=== PATIENT | female | born 1980 | race American Indian/Alaskan Native ===

== ENCOUNTER 2018-12-14 14:47 | Outpatient (CLI) | payer OTHER ==
[2018-12-14] MEDS ORDERED: NORMODYNE PO SCH (16:00)
[2018-12-14 16:02] LABS: Hematocrit 32.2 % (30.3-42.9); Hemoglobin 10.5 gm/dl (10.1-14.3); Mean Corpuscular HGB Conc 33 % (30-34); Mean Corpuscular Volume 81 fl (79-97); Platelet Count 215 K/mm3 (140-440); Red Cell Distribution Width 18.6 % (13.2-15.2)
[2018-12-14 16:17] LABS: Bilirubin,Urine NEG (Negative); Blood,Urine NEG (Negative); Color,Urine Yellow (Yellow); Protein,Urine <15 mg/dL mg/dL (Negative); Uric Acid 2.9 mg/dL (3.5-7.6)
[2018-12-14 16:18] LABS: Alanine Aminotransferase < 5 units/L (7-56)
[2018-12-14] MEDS ORDERED: APRESOLINE IV PRN (16:54)
--- NOTE | 2018-12-14 19:09 | Ultrasound Report ---
FINAL REPORT PROCEDURE: US OB BPP WO NON-STRESS TECHNIQUE: Sonographic evaluation for breathing, movement, tone, and amniotic flui d volume was performed. CPT 96410 HISTORY: -induced hypertension COMPARISON: No prior studies are available for comparison. FINDINGS: Amniotic fluid volume: Normal-score 2. At least one vertical pocket > 2 cm or more in vertical axi s. breathing: Normal-score 2. movement: Normal-score 2. tone: Normal. Score: 8 of 8. Single living intrauterine gestation visualized currently vertex presentation with a heart rate of 17 0 beats per minute. IMPRESSION: Normal biophysical profile. 05/31.
[2018-12-14 19:10] VITALS: BP 143/94
--- NOTE | 2018-12-14 19:12 | Ultrasound Report ---
FINAL REPORT PROCEDURE: US OB VELOCIMETRY UMBILCAL ART TECHNIQUE: Doppler imaging of the umbilical artery was obtained and recorded. HISTORY: -induced hypertension COMPARISON: No prior studies are available for comparison. FINDINGS: Systolic to diastolic ratio of the umbilical arteries shows 1.39 which is within normal limits. Good diastolic flow is seen. The resistive index appears normal measuring 0.52. Good diastolic flow is vis ualized. heart rate of 170 beats per minute is detected. Amount of amniotic fluid subjectively appears normal. Amniotic fluid index appears normal measuring 15.2 centimeters. IMPRESSION: Doppler evaluation of the umbilical arteries shows normal-appearing resistive index and systolic to d iastolic ratio. Good diastolic flow seen. Amount of amniotic fluid appears normal.
--- NOTE | 2018-12-14 19:14 | Ultrasound Report ---
FINAL REPORT PROCEDURE: US OB LIMITED TECHNIQUE: Real-time limited sonographic examination was performed for evaluation of well-bein g for each fetus with image documentation (1 or more fetuses). CPT 83573 HISTORY: pih COMPARISON: No prior studies are available for comparison. FINDINGS: There is a single living intrauterine gestation currently visualized in the vertex presentation with a heart rate of 170 beats per minute. Both subjectively and by amniotic fluid index the amount of amn iotic fluid appears normal. The amniotic fluid index is 15.2 centimeters. The placenta is located pos terior and fundal and is grade 3. No abruption is seen. Detailed exam of the anatomy was not pe rformed as this was not requested. IMPRESSION: Both subjectively and by amniotic fluid index the amount of amniotic fluid appears normal. Single living intrauterine gestation currently visualized vertex presentation. Grade 3 placenta present as described. No abruption visualized.
== END 2018-12-14 19:30 | disposition home or self-care (01) ==
LOC: TRG 14:47
PROVIDERS: ATTEND Obstetrics & Gynecology
DX: O47.1 False labor at or after 37 completed weeks of gestation (principal); O13.3 Gestational [pregnancy-induced] hypertension without significant proteinuria, third trimester; Z3A.39 39 weeks gestation of pregnancy
CPT/HCPCS: 36415; 59025; 76815; 76819; 76820; 81001; 82565; 83615; 84450; 84460; 84550; 85027

== ENCOUNTER 2018-12-17 02:22 | Inpatient (IN) | payer SELFPAY ==
[2018-12-17] MEDS ORDERED: APRESOLINE IV ONE (02:35)
[2018-12-17] MEDS ORDERED: MAGNESIUM SULFATE 4GM/100ML 4 GM/100 ML BAG IV ONE (02:40)
[2018-12-17] MEDS ORDERED: NORMODYNE IV ONE ×2 (02:40→06:50)
[2018-12-17] MEDS ORDERED: SUBLIMAZE IV PRN (03:20)
[2018-12-17] MEDS ORDERED: BRETHINE SUB-Q PRN (03:20)
[2018-12-17] MEDS: LACTATED RINGERS 1,000 ML IV SCH ×2 (03:20→14:54)
[2018-12-17] MEDS ORDERED: XYLOCAINE 2% INFILTRATI ONE (03:20)
[2018-12-17] MEDS ORDERED: AMPICILLIN/NS 2 GM/100 ML 2 GM/100 ML BAG IV ONE (03:20)
[2018-12-17] MEDS: MAGNESIUM SULFATE 40GM/1000ML 40 GM/1,000 ML BAG IV SCH (03:40)
--- NOTE | 2018-12-17 03:44 | History and Physical Report ---
History of Present Illness Date of examination: 12/17/18 Date of admission: 12/17/18 03:18 Chief complaint: Labor History of present illness: 38 year old presents to L&D in active labor at 39 weeks gestation. No records are available but patient states she has been receiving care at [facility]. Patient speaks Italian. Patient reports a history of severe preeclampsia with a previous ; she states she has been receiving LDA during this . She states she has not been taking any other medications during this . Patient reports a latex allergy. No other allergies reported. Patient denies leaking of fluid or vaginal bleeding. Patient reports active movement. Patient denies headache, visual disturbance, nausea or vomiting, abdominal or epigastric pain or edema. labs have been drawn and US has been ordered. Past History Past Medical History: other (history of severe preeclampsia with a previous ; overweight) Past Surgical History: no surgical history [facility] History: denies: abnormal PAP smear, chlamydia, gonorrhea, hepatitis B, hepatitis C, herpes, HIV, syphilis, trichomonas Family/Genetic History: none Social history: single, lives with family, full code. denies: smoking, alcohol abuse, prescription drug abuse, IV drug use - Obstetrical History Expected Date of Delivery: 12/24/18 Actual Gestation: 39 Week(s) 0 Day(s) : 3 Para: 1 Hx # Term Pregnancies: 2 Number of Pregnancies: 0 Spontaneous Abortions: 1 (12 weeks gestation) Induced : 0 Number of Living Children: 1 Medications and Allergies Allergies Allergy/AdvReac Type Severity Reaction Status Date / Time latex Allergy Rash Verified 12/17/18 04:12 Home Medications Medication Instructions Recorded Confirmed Last Taken Type Aspirin BABY CHEW TAB 10/18/18 Unknown History 21/Iron Fu/Folic Acid 10/18/18 Unknown History Active Meds: Active Medications Fentanyl (Sublimaze) 100 mcg IV Q2H PRN PRN Reason: Labor Pain Hydralazine HCl (Apresoline) 10 mg IV ONCE ONE Stop: 12/17/18 02:36 Ampicillin Sodium (Polycillin/Ns 2 Gm/100 Ml) 2 gm in 100 mls @ 100 mls/hr IV ONCE ONE; Protocol Stop: 12/17/18 04:19 Lactated Ringer's (Lactated Ringers) 1,000 mls @ 125 mls/hr IV DIRECT DAVID Oxytocin/Sodium Chloride (Pitocin/Ns 20 Unit/1000ml Drip) 20 units in 1,000 mls @ 125 mls/hr IV DIRECT DAVID Oxytocin/Sodium Chloride (Pitocin/Ns 30 Unit/500ml) 30 units in 500 mls @ 0 mls/hr IV TITR DAVID; Protocol Ampicillin Sodium (Ampicillin/Ns 1 Gm/50 Ml) 1 gm in 50 mls @ 100 mls/hr IV Q4HR DAVID; Protocol Magnesium Sulfate (Magnesium Sulfate 40gm/1000ml) 40 gm in 1,000 mls @ 50 mls/hr IV DIRECT DAVID Magnesium Sulfate (Magnesium Sulfate 4gm/100ml) 4 gm in 100 mls @ 300 mls/hr IV ONCE ONE Stop: 12/17/18 02:59 Labetalol HCl (Normodyne) 10 mg IV ONCE ONE Stop: 12/17/18 02:41 Lidocaine (Xylocaine 2%) 20 ml INFILTRATI ONCE ONE Stop: 12/17/18 03:21 Terbutaline Sulfate (Brethine) 0.25 mg SUB-Q ONCE PRN PRN Reason: Hyperstimulation/Hypertonicity Review of Systems All systems: negative (contractions and elevated blood pressure) - Vital Signs Vital signs: Vital Signs Pulse BP 91 H 158/85 12/17/18 03:25 12/17/18 03:25 Temp Pulse Resp BP Pulse Ox 91 H 158/85 12/17/18 03:25 12/17/18 03:25 - Physical Exam Cardiovascular: Regular rate Lungs: Positive: Clear to auscultation Abdomen: Positive: normal appearance, soft. Negative: distention, tenderness, guarding, rigidity Genitourinary (Female): Positive: normal external genitalia, normal perenium. Negative: perineal/vulvar lesions Vagina: Positive: normal moisture Uterus: Positive: enlarged. Negative: tender Anus/Rectum: Positive: normal perianal skin Extremities: Positive: normal. Negative: tenderness, edema - Obstetrical FHR: category 2 Uterine Contraction Monitor Mode: External Cervical Dilatation: 6 Cervical Effacement Percentage: 90 station: -2 Uterine Contraction Pattern: Regular Uterine Contraction Intensity: Moderate Results All other labs normal. Assessment and Plan A: at 39 weeks gestation. No records available; will request records. Active labor. GBS unknown. Preeclampsia with severe features. P: Admit. IV Labetalol (IV Hydralazine not available at this time per pharmacy). Magnesium Sulfate. GBS prophylaxis. Preeclamptic labs. Strict I&O, Caceres catheter. Continuous EFM. Expedite delivery. Consulted with Dr. Benitez re: this patient; states he agrees with above POC.
[2018-12-17] MEDS ORDERED: PITOCin/NS 20 UNIT/1000ML DRIP 20 UNITS/1,000 ML BAG IV SCH ×2 (04:00→06:00)
[2018-12-17] MEDS ORDERED: PITOCin/NS 30 UNIT/500ML 30 UNITS/500 ML BAG IV SCH (04:00)
[2018-12-17 04:11] LABS: Hemoglobin 10.2 gm/dl (10.1-14.3); Mean Corpuscular HGB Conc 32 % (30-34); Mean Corpuscular Volume 81 fl (79-97); Platelet Count 199 K/mm3 (140-440); Red Blood Count 3.93 M/mm3 (3.65-5.03); Red Cell Distribution Width 19.1 % (13.2-15.2)
[2018-12-17] MEDS ORDERED: STADOL IV PRN (04:16)
[2018-12-17 04:20] LABS: INR 0.95 (0.87-1.13)
[2018-12-17 04:21] LABS: Partial Thromboplastin Time 25.6 Sec. (24.2-36.6)
[2018-12-17 05:00] LABS: Alanine Aminotransferase 7 units/L (7-56); Albumin 3.6 g/dL (3.9-5); BUN/Creatinine Ratio 5; Blood Urea Nitrogen 2 mg/dL (7-17); Calcium 9.5 mg/dL (8.4-10.2); Hemolysis Index 8; Uric Acid 3.3 mg/dL (3.5-7.6)
[2018-12-17 05:08] LABS: Hepatitis C Virus Antibody Non-Reactive (NonReactive)
[2018-12-17] MEDS ORDERED: HEMABATE IM ONE ×2 (05:08→05:26)
[2018-12-17] MEDS ORDERED: CYTOTEC ONE ×3 (05:15→07:42)
--- NOTE | 2018-12-17 05:25 | Procedure Note ---
OB Delivery Note - Delivery Date of Delivery: 12/17/18 Surgeon: JANE BRO Estimated blood loss: other (600ml) - Vaginal Delivery presentation: vertex Delivery position: OA Intrapartum events: preeclampsia, precipitous labor- <3hr Delivery induction: none Delivery monitor: external FHT, external uterine Route of delivery: Delivery placenta: spontaneous Delivery cord: nuchal cord, 3 umbilical vessels Episiotomy: none Delivery laceration: 2nd degree (perineal) Delivery repair: vicryl Anesthesia: local Delivery comments: delivered OA and placed on Mom's chest for [id number] bonding and delayed cord clamping - Infant A at 1 minute: 8 at 5 minutes: 9 Infant Gender: Male (3955gms)
[2018-12-17] MEDS ORDERED: LANSINOH TP PRN (05:26)
[2018-12-17] MEDS ORDERED: BENADRYL PO PRN (05:26)
[2018-12-17] MEDS ORDERED: DULCOLAX PR PRN (05:26)
[2018-12-17] MEDS ORDERED: CYTOTEC PR ONE ×2 (05:26→06:51)
[2018-12-17] MEDS ORDERED: TYLENOL PO PRN (05:26)
[2018-12-17] MEDS ORDERED: MILK OF MAGNESIA PO PRN (05:26)
[2018-12-17] MEDS ORDERED: NORCO 5/325 PO PRN (05:26)
[2018-12-17] MEDS ORDERED: TUCKS PAD TP PRN (05:26)
[2018-12-17] MEDS ORDERED: PHENERGAN PO PRN (05:26)
[2018-12-17] MEDS ORDERED: PHENERGAN PR PRN (05:26)
[2018-12-17] MEDS ORDERED: ZOFRAN IV PRN (05:26)
[2018-12-17] MEDS ORDERED: SODIUM CHLORIDE FLUSH SYRINGE 10 ML IV NR (06:00)
[2018-12-17] MEDS ORDERED: AMPICILLIN/NS 1 GM/50 ML 1 GM/50 ML BAG IV SCH (07:24)
[2018-12-17] MEDS: NORMODYNE PO SCH (10:30)
[2018-12-17] MEDS: FEOSOL PO SCH (10:30)
[2018-12-17] MEDS: PRENATAL VITAMIN PO SCH (10:31)
[2018-12-17 14:01] LABS: Hematocrit 24.8 % (30.3-42.9)
[2018-12-17 17:47] LABS: Hematocrit 24.7 % (30.3-42.9); Hemoglobin 7.9 gm/dl (10.1-14.3)
[2018-12-18] MEDS: MAGNESIUM SULFATE 40GM/1000ML 40 GM/1,000 ML BAG IV SCH (00:05)
[2018-12-18] MEDS: LACTATED RINGERS 1,000 ML IV SCH (00:10)
[2018-12-18] MEDS: NORMODYNE PO SCH ×3 (03:33→23:02)
[2018-12-18] MEDS: COLACE PO SCH ×3 (03:34→23:03)
[2018-12-18] MEDS: FEOSOL PO SCH ×3 (03:34→23:02)
[2018-12-18] MEDS: IBUPROFEN PO SCH ×3 (05:54→18:20)
[2018-12-18] MEDS ORDERED: BOOSTRIX IM ONE (06:00)
[2018-12-18] MEDS ORDERED: M-M-R II VACCINE SUB-Q ONE (06:00)
--- NOTE | 2018-12-18 10:01 | Progress Note ---
Assessment and Plan - Patient Problems (1) Status post normal vaginal delivery Current Visit: Yes Status: Acute Plan to address problem: PPD 1 - stable Continue routine PP orders Anticipate discharge in 24-48 hours (2) Pre-eclampsia Current Visit: Yes Status: Acute Qualifiers: Trimester: third trimester Qualified Code(s): O14.93 - Unspecified pre- eclampsia, third trimester Plan to address problem: Asymptomatic BPs stable Completed Magnesium sulfate therapy Continue Labetalol 200mg PO BID (3) Anemia in puerperium, baby delivered during current episode of care Current Visit: Yes Status: Acute Plan to address problem: Asmyptomatic Continue iron therapy Repeat H&H 12/19/18 Subjective - Subjective Date of service: 12/18/18 Principal diagnosis: PPD #1; s/p , Pre-eclampsia Interval history: See H&P and OB Delivery Procedure Note Patient reports: appetite normal, pain well controlled, flatus, other (hasn't voided post james catheter removal. Denies headache, visual disturbances, RUQ or leg pain), no dizzy ambulation, no bowel movement : doing well, bottle feeding Objective - Vital Signs Latest vital signs: Vital Signs Temp Pulse Resp BP BP Pulse Ox 12/18/18 08:55 97.9 F 85 18 118/65 12/18/18 06:46 98.2 F 83 18 121/81 99 12/18/18 05:22 86 117/68 12/18/18 04:22 91 H 120/73 12/18/18 03:33 92 H 137/76 12/18/18 03:30 97.7 F 18 12/18/18 03:22 92 H 137/76 12/18/18 02:22 92 H 121/63 12/18/18 01:22 95 H 136/76 12/18/18 00:22 99 H 127/72 12/18/18 00:01 102 H 131/70 12/17/18 23:22 101 H 127/98 12/17/18 22:22 101 H 128/77 12/17/18 21:22 100 H 133/78 12/17/18 20:23 99.5 F 18 12/17/18 20:20 103 H 117/81 12/17/18 20:15 100 H 114/63 12/17/18 20:09 100 H 122/65 12/17/18 20:04 100 H 117/65 12/17/18 20:00 104 H 126/74 12/17/18 19:55 104 H 115/66 12/17/18 19:49 102 H 114/62 12/17/18 19:45 100 H 110/58 12/17/18 19:40 107 H 123/63 12/17/18 19:29 103 H 108/55 12/17/18 19:24 103 H 100/58 12/17/18 19:19 103 H 104/58 12/17/18 19:15 104 H 105/59 12/17/18 19:10 105 H 87/54 12/17/18 19:05 102 H 108/58 12/17/18 19:00 105 H 90/53 12/17/18 18:54 104 H 108/58 12/17/18 18:49 105 H 104/56 12/17/18 18:44 103 H 107/57 12/17/18 18:40 110 H 110/53 12/17/18 18:34 110 H 112/58 12/17/18 18:29 103 H 107/56 12/17/18 18:24 107 H 103/58 12/17/18 18:19 107 H 98/53 12/17/18 18:15 104 H 102/56 12/17/18 18:10 107 H 106/58 12/17/18 18:04 101 H 102/55 12/17/18 17:59 100 H 106/59 12/17/18 17:54 101 H 102/57 12/17/18 17:50 100 H 114/58 12/17/18 17:45 108 H 125/71 12/17/18 17:40 106 H 122/62 12/17/18 17:35 109 H 123/67 12/17/18 17:25 109 H 116/69 12/17/18 17:20 110 H 121/56 12/17/18 17:14 104 H 117/65 12/17/18 17:09 104 H 111/61 12/17/18 17:04 103 H 109/64 12/17/18 16:59 102 H 102/55 12/17/18 16:54 103 H 110/56 12/17/18 16:50 102 H 107/58 12/17/18 16:39 101 H 107/64 02/24/19 16:34 101 H 110/67 12/17/18 16:30 107 H 113/70 12/17/18 16:25 101 H 111/67 12/17/18 16:20 108 H 119/78 12/17/18 16:15 106 H 114/73 12/17/18 16:09 106 H 114/68 12/17/18 16:04 106 H 117/69 12/17/18 16:00 100 H 106/63 12/17/18 15:55 101 H 115/62 12/17/18 15:49 102 H 107/61 12/17/18 15:45 104 H 111/63 12/17/18 15:39 98 H 111/56 12/17/18 15:34 96 H 120/69 12/17/18 15:30 104 H 125/63 12/17/18 15:25 105 H 113/58 12/17/18 15:20 101 H 121/57 12/17/18 15:15 103 H 116/61 12/17/18 15:10 102 H 129/64 12/17/18 15:00 104 H 133/61 12/17/18 14:55 100 H 120/62 12/17/18 14:49 104 H 116/64 12/17/18 14:44 101 H 115/65 12/17/18 14:39 101 H 110/64 12/17/18 14:35 102 H 119/64 12/17/18 14:30 106 H 118/69 12/17/18 14:25 104 H 120/71 12/17/18 14:19 103 H 117/64 12/17/18 14:14 104 H 110/56 12/17/18 14:09 101 H 122/59 12/17/18 14:04 105 H 117/58 12/17/18 13:59 102 H 112/56 12/17/18 13:54 101 H 107/57 12/17/18 13:49 100 H 110/60 12/17/18 13:45 103 H 106/60 12/17/18 13:35 100 H 109/56 12/17/18 13:30 100 H 100/55 12/17/18 13:25 101 H 106/65 12/17/18 13:20 102 H 114/67 12/17/18 13:15 100 H 94/51 12/17/18 13:10 101 H 90/55 12/17/18 13:04 100 H 89/54 12/17/18 12:59 98 H 88/50 12/17/18 12:55 101 H 91/54 12/17/18 12:50 98 H 85/46 12/17/18 12:45 100 H 88/52 12/17/18 12:40 100 H 102/59 12/17/18 12:34 101 H 108/58 12/17/18 12:30 103 H 106/55 12/17/18 12:25 101 H 107/56 12/17/18 12:20 103 H 119/57 12/17/18 12:15 101 H 133/57 12/17/18 12:00 101 H 108/69 12/17/18 11:55 100 H 115/70 12/17/18 11:50 98 H 115/65 12/17/18 11:44 95 H 112/63 12/17/18 11:40 97 H 118/67 12/17/18 11:35 99 H 126/77 12/17/18 11:29 97 H 118/70 12/17/18 11:24 96 H 116/73 12/17/18 11:19 98 H 117/73 12/17/18 11:15 96 H 123/78 12/17/18 11:09 96 H 143/77 12/17/18 11:04 96 H 131/74 12/17/18 11:00 97 H 135/77 12/17/18 10:55 98 H 141/81 12/17/18 10:50 170/95 12/17/18 10:45 101 H 155/85 12/17/18 10:40 98 H 162/94 12/17/18 10:35 98 H 163/85 12/17/18 10:30 101 H 149/73 12/17/18 10:24 97 H 138/77 12/17/18 10:19 97 H 127/70 12/17/18 10:15 99 H 121/69 12/17/18 10:09 98 H 125/70 12/17/18 10:04 96 H 129/74 12/17/18 09:59 98 H 134/75 Intake and Output 12/17/18 12/18/1812/18/19 23:59 07:59 15:59 Intake Total 2000 120 Output Total 1100 1900 Balance 900 -1900 120 Intake: IV 2000 Lactated Ringers 1,000 ml 1000 @ 125 mls/hr IV DIRECT DAVID Rx#:[id number] MAGNESIUM SULFATE 40GM/ 1000 1000ML 40 gm In 1,000 ml @ 2 GM/HR 50 mls/hr IV DIRECT DAVID Rx#:[id number] Oral 120 Output: Urine 1100 1900 Indwelling Catheter 1100 1900 Other: Total, Intake Amount 120 Total, Output Amount 300 400 - Exam Cardiovascular: Present: Regular rate Lungs: Present: Clear to auscultation Abdomen: Present: normal appearance, soft Vulva: both: laceration/episiotomy (well approximated) Uterus: Present: normal, firm, fundal height below umbilicus Extremities: Present: normal Comments: scant lochia - Labs Labs: Abnormal lab results 12/17/18 12/17/18 12/17/18 Range/Units 13:36 15:58 17:18 Hgb 8.0 L 7.9 L (10.1-14.3) gm/dl Hct 24.8 L D 24.7 L (30.3-42.9) % Magnesium 5.80 H (1.7-2.3) mg/dL 12/17/18 12/18/18 12/18/18 Range/Units 20:45 01:47 07:36 Hgb (10.1-14.3) gm/dl Hct (30.3-42.9) % Magnesium 5.70 H 5.60 H 4.60 H (1.7-2.3) mg/dL
[2018-12-18] MEDS: PRENATAL VITAMIN PO SCH (10:06)
[2018-12-18 10:58] LABS: Bilirubin,Urine NEG (Negative); Blood,Urine LG (Negative); Color,Urine Yellow (Yellow); Mucus,Urine FEW /HPF; Urobilinogen,Urine < 2.0 mg/dL (<2.0)
[2018-12-18 11:37] LABS: Amphetamine Screen,Urine PRESUMPTIVE NEGATIVE; Benzodiazepines Screen,Urine PRESUMPTIVE NEGATIVE; Cannabinoid Screen,Urine PRESUMPTIVE NEGATIVE; Cocaine Screen,Urine PRESUMPTIVE NEGATIVE; Methadone Screen,Urine PRESUMPTIVE NEGATIVE; Opiate Screen,Urine PRESUMPTIVE NEGATIVE
[2018-12-19] MEDS: IBUPROFEN PO SCH ×5 (00:30→23:48)
[2018-12-19 01:05] LABS: Hematocrit 20.8 % (30.3-42.9); Hemoglobin 6.8 gm/dl (10.1-14.3)
[2018-12-19] MEDS ORDERED: INFED IM ONE (02:20)
[2018-12-19] MEDS ORDERED: BOOSTRIX IM ONE (06:00)
[2018-12-19 06:04] LABS: Hemoglobin 6.5 gm/dl (10.1-14.3)
[2018-12-19 06:15] LABS: Hematocrit 19.9 % (30.3-42.9)
[2018-12-19] MEDS: NORMODYNE PO SCH ×3 (10:31→21:54)
[2018-12-19] MEDS: COLACE PO SCH ×2 (10:32→21:52)
[2018-12-19] MEDS: FEOSOL PO SCH ×2 (10:32→22:13)
[2018-12-19] MEDS: PRENATAL VITAMIN PO SCH (10:32)
--- NOTE | 2018-12-19 10:54 | Progress Note ---
Assessment and Plan 1) Status post normal vaginal delivery Current Visit: Yes Status: Acute Plan to address problem: PPD 2 - stable Continue routine PP orders Anticipate discharge today (2) Pre-eclampsia Current Visit: Yes Status: Acute Qualifiers: Trimester: third trimester Qualified Code(s): O14.93 - Unspecified pre- eclampsia, third trimester Plan to address problem: Asymptomatic BPs stable Completed Magnesium sulfate therapy Continue Labetalol 200mg PO BID (3) Anemia in puerperium, baby delivered during current episode of care Current Visit: Yes Status: Acute Plan to address problem: Asmyptomatic: initial Hgb 8.0 InFed 100mg IM x 1 dose Continue iron therapy 325mg TID Subjective - Subjective Date of service: 12/19/18 Principal diagnosis: PPD #2; s/p , Pre-eclampsia, Anemia Interval history: See H&P and delivery note Patient reports: appetite normal, voiding normally, pain well controlled, flatus, ambulating normally, no bowel movement [place]: doing well, nursing well Objective - Vital Signs Latest vital signs: Vital Signs Temp Pulse Resp BP BP 12/19/18 08:20 98.4 F 98 H 18 148/82 12/19/18 05:57 18 12/19/18 00:30 18 12/18/18 23:02 85 151/85 12/18/18 23:00 97.5 F L 85 18 151/85 12/18/18 16:30 98.4 F 89 18 147/81 Intake and Output 12/18/18 12/19/18 12/19/18 23:59 07:59 15:59 Intake Total 480 120 Balance 480 120 Intake: Oral 480 120 Other: Total, Intake Amount 240 120 # Voids Indwelling Catheter 1 1 - Exam Breasts: Present: normal, , tender Cardiovascular: Present: Regular rate, Normal S1, Normal S2, No murmurs Lungs: Present: Clear to auscultation, Normal air movement Abdomen: Present: normal appearance, soft, normal bowel sounds. Absent: distention Vulva: both: normal, laceration/episiotomy (2nd degree; well approximated) Uterus: Present: firm, fundal height below umbilicus (-1) Extremities: Present: normal Deep Tendon Reflex Grade: Normal +2 - Labs Labs: Abnormal lab results 02/25/19 02/26/19 02/26/19 Range/Units 09:50 00:41 05:36 Hgb 6.8 L 6.5 L (10.1-14.3) gm/dl Hct 20.8 L 19.9 L* (30.3-42.9) % Urine WBC (Auto) 26.0 H (0.0-6.0) /HPF
--- NOTE | 2018-12-19 10:57 | Discharge Summary ---
<DESTIN - Last Filed: 12/19/18 10:55> Providers - Providers Date of Admission: 12/17/18 03:18 Date of discharge: 12/19/18 Attending physician: ROCKY MENDEZ MD 12/19/18 06:59 Consult to Case Management [CONS] Routine Services Needed at Discharge: Supply Chain Specialist Notified:: [id number] Primary care physician: ROCKY MENDEZ MD Hospitalization Reason for admission: active labor, IUP at term Delivery: Procedure details: See H&P and delivery note Episiotomy: none Laceration: 2nd degree (well approximated) Other procedures: none complications: none Discharge diagnosis: IUP at term delivered Condition at discharge: Good Disposition: [id number] TO HOME OR SELFCARE Plan - Discharge Medications Prescriptions: Iron,Carb/Vit C/Vit B12/Folic [Iron 100 Plus Tablet] 1 each PO BID #60 tablet Ibuprofen [Motrin] 800 mg PO Q8HR PRN #30 tablet PRN Reason: Pain, Moderate (4-6) Labetalol [Normodyne TAB] 300 mg PO BID #60 tablet Labetalol [Normodyne TAB] 300 mg PO BID #60 tablet - Provider Discharge Summary Activity: routine, no sex for 6 weeks, no heavy lifting 4 weeks, no strenuous exercise Diet: routine Instructions: routine Additional instructions: [] Smoking cessation referral if applicable(refer to patient education folder for contact #) [] Refer to [facility] Booklet Call your doctor immediately for: * Fever > 100.5 * Heavy vaginal bleeding ( >1 pad per hour) * Severe persistent headache * Shortness of breath * Reddened, hot, painful area to leg or breast * Drainage or odor from incision. * Keep incision clean and dry at all times and follow doctor's instructions regarding bathing/showering - Follow up plan Follow up: ROCKY MENDEZ MD [Primary Care Provider] - 6 Weeks Forms: [facility] Discharge Summary <MIGUEL TOPETE - Last Filed: 12/29/18 00:27> Providers - Providers Date of Admission: 12/17/18 03:18 Attending physician: ROCKY MENDEZ MD 12/19/18 06:59 Consult to Case Management [CONS] Routine Services Needed at Discharge: Supply Chain Specialist Notified:: [id number] Primary care physician: ROCKY MENDEZ MD Hospitalization Hospital course: Laboratory Tests 12/17/18 12/17/18 12/17/18 03:00 03:00 03:00 WBC 6.2 RBC 3.93 Hgb 10.2 Hct 32.0 MCV 81 MCH 26 L MCHC 32 RDW 19.1 H Plt Count 199 PT INR APTT Sodium Potassium Chloride Carbon Dioxide Anion Gap BUN Creatinine Estimated GFR BUN/Creatinine Ratio Glucose Uric Acid Calcium Magnesium Total Bilirubin AST ALT Alkaline Phosphatase Lactate Dehydrogenase Total Protein Albumin Albumin/Globulin Ratio Urine Color Urine Turbidity Urine pH Ur Specific [place] Urine Protein Urine Glucose (UA) Urine Ketones Urine Blood Urine Nitrite Urine Bilirubin Urine Urobilinogen Ur Leukocyte Esterase Urine WBC (Auto) Urine RBC (Auto) U Epithel Cells (Auto) Urine Mucus Urine Opiates Screen Urine Methadone Screen Ur Barbiturates Screen Ur Phencyclidine Scrn Ur Amphetamines Screen U Benzodiazepines Scrn Urine Cocaine Screen U Marijuana (THC) Screen Drugs of Abuse Note RPR Nonreactive Hep Bs Antigen Hepatitis C Antibody HIV 1&2 Antibody Rapid HIV P24 Antigen Rubella IgG Antibody Blood Type A POSITIVE Antibody Screen Negative 12/17/18 12/17/18 12/17/18 03:00 03:00 03:00 WBC RBC Hgb Hct MCV MCH MCHC RDW Plt Count PT 13.2 INR 0.95 APTT 25.6 Sodium 136 L Potassium 3.8 Chloride 99.9 Carbon Dioxide 22 Anion Gap 18 BUN 2 L Creatinine 0.4 L Estimated GFR > 60 BUN/Creatinine Ratio 5 Glucose 70 Uric Acid 3.3 L Calcium 9.5 Magnesium Total Bilirubin 1.00 AST 21 ALT 7 Alkaline Phosphatase 174 H Lactate Dehydrogenase 228 H Total Protein 6.9 Albumin 3.6 L Albumin/Globulin Ratio 1.1 Urine Color Urine Turbidity Urine pH Ur Specific [place] Urine Protein Urine Glucose (UA) Urine Ketones Urine Blood Urine Nitrite Urine Bilirubin Urine Urobilinogen Ur Leukocyte Esterase Urine WBC (Auto) Urine RBC (Auto) U Epithel Cells (Auto) Urine Mucus Urine Opiates Screen Urine Methadone Screen Ur Barbiturates Screen Ur Phencyclidine Scrn Ur Amphetamines Screen U Benzodiazepines Scrn Urine Cocaine Screen U Marijuana (THC) Screen Drugs of Abuse Note RPR Hep Bs Antigen Hepatitis C Antibody Non-reactive HIV 1&2 Antibody Rapid HIV P24 Antigen Rubella IgG Antibody Immune Blood Type Antibody Screen 12/17/18 12/17/18 12/17/18 03:00 03:00 07:01 WBC RBC Hgb Hct MCV MCH MCHC RDW Plt Count PT INR APTT Sodium Potassium Chloride Carbon Dioxide Anion Gap BUN Creatinine Estimated GFR BUN/Creatinine Ratio Glucose Uric Acid Calcium Magnesium 4.30 H Total Bilirubin AST ALT Alkaline Phosphatase Lactate Dehydrogenase Total Protein Albumin Albumin/Globulin Ratio Urine Color Urine Turbidity Urine pH Ur Specific [place] Urine Protein Urine Glucose (UA) Urine Ketones Urine Blood Urine Nitrite Urine Bilirubin Urine Urobilinogen Ur Leukocyte Esterase Urine WBC (Auto) Urine RBC (Auto) U Epithel Cells (Auto) Urine Mucus Urine Opiates Screen Urine Methadone Screen Ur Barbiturates Screen Ur Phencyclidine Scrn Ur Amphetamines Screen U Benzodiazepines Scrn Urine Cocaine Screen U Marijuana (THC) Screen Drugs of Abuse Note RPR Hep Bs Antigen Non-reactive Hepatitis C Antibody HIV 1&2 Antibody Rapid Non react HIV P24 Antigen Non react Rubella IgG Antibody Blood Type Antibody Screen 12/17/18 12/17/18 12/17/18 13:36 15:58 17:18 WBC RBC Hgb 8.0 L 7.9 L Hct 24.8 L D 24.7 L MCV MCH MCHC RDW Plt Count PT INR APTT Sodium Potassium Chloride Carbon Dioxide Anion Gap BUN Creatinine Estimated GFR BUN/Creatinine Ratio Glucose Uric Acid Calcium Magnesium 5.80 H Total Bilirubin AST ALT Alkaline Phosphatase Lactate Dehydrogenase Total Protein Albumin Albumin/Globulin Ratio Urine Color Urine Turbidity Urine pH Ur Specific [place] Urine Protein Urine Glucose (UA) Urine Ketones Urine Blood Urine Nitrite Urine Bilirubin Urine Urobilinogen Ur Leukocyte Esterase Urine WBC (Auto) Urine RBC (Auto) U Epithel Cells (Auto) Urine Mucus Urine Opiates Screen Urine Methadone Screen Ur Barbiturates Screen Ur Phencyclidine Scrn Ur Amphetamines Screen U Benzodiazepines Scrn Urine Cocaine Screen U Marijuana (THC) Screen Drugs of Abuse Note RPR Hep Bs Antigen Hepatitis C Antibody HIV 1&2 Antibody Rapid HIV P24 Antigen Rubella IgG Antibody Blood Type Antibody Screen 12/17/18 12/18/18 12/18/18 20:45 01:47 07:36 WBC RBC Hgb Hct MCV MCH MCHC RDW Plt Count PT INR APTT Sodium Potassium Chloride Carbon Dioxide Anion Gap BUN Creatinine Estimated GFR BUN/Creatinine Ratio Glucose Uric Acid Calcium Magnesium 5.70 H 5.60 H 4.60 H Total Bilirubin AST ALT Alkaline Phosphatase Lactate Dehydrogenase Total Protein Albumin Albumin/Globulin Ratio Urine Color Urine Turbidity Urine pH Ur Specific [place] Urine Protein Urine Glucose (UA) Urine Ketones Urine Blood Urine Nitrite Urine Bilirubin Urine Urobilinogen Ur Leukocyte Esterase Urine WBC (Auto) Urine RBC (Auto) U Epithel Cells (Auto) Urine Mucus Urine Opiates Screen Urine Methadone Screen Ur Barbiturates Screen Ur Phencyclidine Scrn Ur Amphetamines Screen U Benzodiazepines Scrn Urine Cocaine Screen U Marijuana (THC) Screen Drugs of Abuse Note RPR Hep Bs Antigen Hepatitis C Antibody HIV 1&2 Antibody Rapid HIV P24 Antigen Rubella IgG Antibody Blood Type Antibody Screen 12/18/18 12/18/18 12/19/18 09:50 09:50 00:41 WBC RBC Hgb 6.8 L Hct 20.8 L MCV MCH MCHC RDW Plt Count PT INR APTT Sodium Potassium Chloride Carbon Dioxide Anion Gap BUN Creatinine Estimated GFR BUN/Creatinine Ratio Glucose Uric Acid Calcium Magnesium Total Bilirubin AST ALT Alkaline Phosphatase Lactate Dehydrogenase Total Protein Albumin Albumin/Globulin Ratio Urine Color Yellow Urine Turbidity Clear Urine pH 6.0 Ur Specific [place] 1.011 Urine Protein 30 mg/dl Urine Glucose (UA) Neg Urine Ketones Neg Urine Blood Lg Urine Nitrite Neg Urine Bilirubin Neg Urine Urobilinogen < 2.0 Ur Leukocyte Esterase Sm Urine WBC (Auto) 26.0 H Urine RBC (Auto) 91.0 U Epithel Cells (Auto) 1.0 Urine Mucus Few Urine Opiates Screen Presumptive negative Urine Methadone Screen Presumptive negative Ur Barbiturates Screen Presumptive negative Ur Phencyclidine Scrn Presumptive negative Ur Amphetamines Screen Presumptive negative U Benzodiazepines Scrn Presumptive negative Urine Cocaine Screen Presumptive negative U Marijuana (THC) Screen Presumptive negative Drugs of Abuse Note Disclamer RPR Hep Bs Antigen Hepatitis C Antibody HIV 1&2 Antibody Rapid HIV P24 Antigen Rubella IgG Antibody Blood Type Antibody Screen 12/19/18 12/19/18 05:36 11:12 WBC RBC Hgb 6.5 L 7.5 L Hct 19.9 L* 23.8 L MCV MCH MCHC RDW Plt Count PT INR APTT Sodium Potassium Chloride Carbon Dioxide Anion Gap BUN Creatinine Estimated GFR BUN/Creatinine Ratio Glucose Uric Acid Calcium Magnesium Total Bilirubin AST ALT Alkaline Phosphatase Lactate Dehydrogenase Total Protein Albumin Albumin/Globulin Ratio Urine Color Urine Turbidity Urine pH Ur Specific [place] Urine Protein Urine Glucose (UA) Urine Ketones Urine Blood Urine Nitrite Urine Bilirubin Urine Urobilinogen Ur Leukocyte Esterase Urine WBC (Auto) Urine RBC (Auto) U Epithel Cells (Auto) Urine Mucus Urine Opiates Screen Urine Methadone Screen Ur Barbiturates Screen Ur Phencyclidine Scrn Ur Amphetamines Screen U Benzodiazepines Scrn Urine Cocaine Screen U Marijuana (THC) Screen Drugs of Abuse Note RPR Hep Bs Antigen Hepatitis C Antibody HIV 1&2 Antibody Rapid HIV P24 Antigen Rubella IgG Antibody Blood Type Antibody Screen - Discharge Diagnoses (1) Anemia of other chronic disease Status: Acute Plan - Provider Discharge Summary Additional instructions: [] Smoking cessation referral if applicable(refer to patient education folder for contact #) [] Refer to [facility] Booklet Call your doctor immediately for: * Fever > 100.5 * Heavy vaginal bleeding ( >1 pad per hour) * Severe persistent headache * Shortness of breath * Reddened, hot, painful area to leg or breast * Drainage or odor from incision. * Keep incision clean and dry at all times and follow doctor's instructions regarding bathing/showering
[2018-12-19 11:42] LABS: Hematocrit 23.8 % (30.3-42.9); Hemoglobin 7.5 gm/dl (10.1-14.3)
[2018-12-19] MEDS ORDERED: NORMODYNE PO SCH (19:33)
[2018-12-20] MEDS: IBUPROFEN PO SCH (05:47)
[2018-12-20 08:06] VITALS: BP 166/98
[2018-12-20] MEDS: COLACE PO SCH (11:15)
[2018-12-20] MEDS: FEOSOL PO SCH (11:15)
[2018-12-20] MEDS: PRENATAL VITAMIN PO SCH (11:15)
[2018-12-20] MEDS: NORMODYNE PO SCH ×2 (11:15)
--- NOTE | 2018-12-20 13:53 | Progress Note ---
Assessment and Plan - Patient Problems (1) Status post normal vaginal delivery Current Visit: Yes Status: Acute (2) Anemia Current Visit: Yes Status: Acute Qualifiers: Anemia type: iron deficiency Plan to address problem: Patient is asymptomatic. Iron Rx given BID. (3) HTN (hypertension) Current Visit: Yes Status: Acute Plan to address problem: Patient was treated with magnesium sulfate for 24 hours. She was told to continue labetolol PO. Rx given. Toxemia precautions were given to her. She was told to go to the office in 2 days for BP check. Subjective - Subjective Date of service: 12/20/18 Principal diagnosis: PPD #3; s/p , Pre-eclampsia, Anemia Interval history: Patient was admitted in labor at 39 weeks gestation. She delivered a live male on 12/17/18. She developed pre-eclampsia and was treated with magnesium sulfate which was discontinued yesterday. She has been on labetolol for BP control. Her BP has been stable but was 166/98 this AM before labetolol was given. Now, BP is 155/88. Patient denies any headache, visual changes or RUQ pain. She also has anemia and has been on iron. Objective - Vital Signs Latest vital signs: Vital Signs Temp Pulse Resp BP BP Pulse Ox 12/20/18 07:09 98.5 F 85 18 166/98 12/20/18 01:17 98.2 F 101 H 18 131/73 96 12/19/18 23:48 20 12/19/18 21:54 93 H 133/73 12/19/18 21:53 93 H 133/73 12/19/18 19:30 70 18 165/87 12/19/18 17:09 98.2 F 88 20 178/100 12/19/18 16:50 86 20 168/98 Intake and Output 12/19/18 12/20/18 12/20/18 23:59 07:59 15:59 Intake Total 240 840 Balance 240 840 Intake: Oral 240 840 Other: Total, Intake Amount 240 360 # Voids Indwelling Catheter 1 1 - Exam Cardiovascular: Present: Normal S1, Normal S2 Lungs: Present: Clear to auscultation Vulva: both: normal Deep Tendon Reflex Grade: Normal +2
== END 2018-12-20 17:30 | disposition home or self-care (01) | DRG 807 ==
LOC: TRG 02:22 → LD 03:18 → OB 12-18 06:41
PROVIDERS: ADMIT Obstetrics & Gynecology; ATTEND Obstetrics & Gynecology
PROC: 10E0XZZ Delivery of Products of Conception, External Approach (ICD-10-PCS; principal; 2018-12-17)
PROC: 0KQM0ZZ Repair Perineum Muscle, Open Approach (ICD-10-PCS; 2018-12-17)
PROC: 3E0234Z Introduction of Serum, Toxoid and Vaccine into Muscle, Percutaneous Approach (ICD-10-PCS; 2018-12-18)
DX: O14.14 Severe pre-eclampsia complicating childbirth (principal); Z37.0 Single live birth; Z3A.39 39 weeks gestation of pregnancy; O62.3 Precipitate labor; Z23 Encounter for immunization; O69.81X0 Labor and delivery complicated by cord around neck, without compression, not applicable or unspecified; O70.1 Second degree perineal laceration during delivery; O90.81 Anemia of the puerperium; D64.9 Anemia, unspecified
CPT/HCPCS: 36415; 80053; 80307; 81001; 83615; 83735; 84550; 85014; 85018; 85027; 85610; 85730; 86592; 86706; 86762; 86803; 86850; 86900; 86901; 87806; 90707; G0378; J0290; J0595; J1750; J2590; J3010; J3475; J7120